=== PATIENT | female | born 1990 | race Caucasian/White ===

== ENCOUNTER 2018-07-23 14:25 | Observation (INO) ==
[2018-07-23] MEDS ORDERED: *HR* FentaNYL (PF) 100 MCG/2 ML VIAL IVP ONE (15:56)
[2018-07-23] MEDS ORDERED: Ondansetron 4 MG/2 ML VIAL IVP ONE ×2 (15:56→19:16)
[2018-07-23] MEDS ORDERED: 0.9 % Sodium Chloride 1,000 ML IVC ONE (16:01)
--- NOTE | 2018-07-23 16:04 | Emergency Department Note ---
Disposition Clinical Impression: Headache Qualifiers: Headache type: unspecified Headache chronicity pattern: acute headache Intractability: not intractable Qualified Code(s): R51 - Headache Fever Qualifiers: Fever type: unspecified Qualified Code(s): R50.9 - Fever, unspecified UTI (urinary tract infection) Qualifiers: Urinary tract infection type: site unspecified Hematuria presence: with hematuria Qualified Code(s): N39.0 - Urinary tract infection, site not specified Sepsis Qualifiers: Sepsis type: sepsis due to unspecified organism Qualified Code(s): A41.9 - Sepsis, unspecified organism Disposition: Still a Patient Condition: Fair Referrals: Ana Laura Sharp CNP [Primary Care Provider] - Forms: ED Satisfaction Letter Time of Disposition: 19:29 General Adult HPI - General Chief complaint: ED Headache Stated complaint: OBERGON x2days,Unable to void Time Seen by Provider: 07/23/18 15:22 Source: patient Mode of arrival: ambulatory Limitations: no limitations Nursing Notes Reviewed: Yes Vital Signs Reviewed: Yes - History of Present Illness HPI Narrative: Patient is a 28-year-old female that presents the emergency department with reports of burning with urination, headache, neck pain, back pain, fever and chills. Patient also reports that she has generalized abdominal pain. Patient states that the urinary symptoms of been intermittent for the past couple of mo nths. Patient states that she has had a headache and fever for the past few days. Patient states that she has pain in her thighs and feels like there is some numbness associated with it. Patient states that she is having sensitivity to light and sound. Patient denies any previous headaches or previous diagnosis of migraines. Pain Scale: 10 - Related Data Home Medications Medication Instructions Recorded Confirmed Dextroamphetamine/Amphetamine 10 mg PO 05/27/18 [Adderall 10 mg Tablet] Previous Rx's Medication Instructions Recorded Ondansetron ODT [Zofran ODT] 4 mg SL Q6HR #12 tab.rapdis 05/27/18 Allergies Allergy/AdvReac Type Severity Reaction Status Date / Time No Known Allergies Allergy Verified 06/15/18 09:03 All systems ED: reviewed and negative except as stated. Constitutional: Reports: fever Cardiovascular: Denies: chest pain Respiratory: Denies: dyspnea Gastrointestinal: Reports: abdominal pain, nausea Genitourinary: Reports: dysuria Musculoskeletal: Reports: back pain, neck pain Past Medical History - Past Medical History Medical history: Reports: no medical history Surgical history: Reports: other (T+A, wisdom tooth extraction) Psychiatric history: Reports: ADHD - Social History Smoking Status: Current every day smoker Smokeless Tobacco Status: No Alcohol use: Reports: recent Drug use: Reports: none Physical Exam - General Limitations: no limitations General appearance: alert, other (Patient is emotional on exam) - Head Head exam: atraumatic, normocephalic - Eye Eye exam: Present: normal appearance, EOMI - Neck Neck exam: Present: normal inspection, full ROM, trachea midline - Respiratory Respiratory exam: Present: normal lung sounds bilaterally. Absent: respiratory distress, wheezes - Cardiovascular Cardiovascular exam: Present: normal rhythm, tachycardia, normal heart sounds, +S1, +S2 - Abdominal Exam Abdominal exam: Present: soft, tenderness, normal bowel sounds. Absent: distention, guarding Abdominal tenderness: Present: diffuse - Extremities Exam Extremities exam: Present: normal inspection, full ROM. Absent: tenderness - Back Exam Back exam: Present: normal inspection, full ROM, CVA tenderness (L) - Neurological Exam Neurological exam: Present: alert, oriented X3 - Psychiatric Psychiatric exam: Present: normal affect, other (Emotional on exam) - Skin Skin exam: Present: warm, dry, intact Course Vital Signs Temperature 102.5 F H 07/23/18 14:31 Pulse Rate 128 07/23/18 14:31 Respiratory Rate 17 07/23/18 14:31 Blood Pressure 119/72 07/23/18 14:31 O2 Sat by Pulse Oximetry 100 07/23/18 14:31 Temperature 102.5 F H 07/23/18 15:14 Pulse Rate 94 07/23/18 17:00 Respiratory Rate 16 07/23/18 17:00 Blood Pressure 110/70 07/23/18 17:00 O2 Sat by Pulse Oximetry 98 07/23/18 17:00 Oxygen Delivery Oxygen Delivery Room Air Procedures - Lumbar Puncture Consent Obtained: written consent Time Out Performed: Yes Patient Position: upright Skin Prep: Povidone-Iodine 1% Local Anesthetic: lidocaine 1% Amount of anesthesia used (mL): 4 Spinal Needle Gauge: 22G Interspace Used: L3-L4 Fluid Initially Obtained: clear Complications: none Medical Decision Making - MDM Narrative Medical decision making narrative: We will obtain basic laboratory testing. The patient was unable to urinate at that time we had no other clinical source of infection so a lumbar puncture was obtained. The lumbar puncture was performed by myself with the supervision of the attending Dr. contreras. The CSF was clear and was sent for analysis. The patient was able to urinate and has evidence of urinary tract infection. Rocephin was given. The patient will require admission to the hospital for further evaluation and management however the CSF is still pending. Patient will be signed out to the night team of Dr. Sun and Dr. Woodall. Please see their documentation for final disposition. - Medical Records Medical records reviewed: Yes I reviewed the patient's medical records. - Lab Data Lab results reviewed: Yes I reviewed the patient's lab results. Result diagrams: 07/23/18 16:18 07/23/18 16:18 Lab Results 07/23/18 07/23/18 07/23/18 Range/Units 16:18 16:18 16:18 WBC 12.5 H (4.3-11.1) K/mcL RBC 4.16 (3.82-4.97) M/mcL Hgb 13.2 (11.5-15.4) g/dL Hct 37.0 (35.3-44.9) % MCV 88.9 (83.0-100.0) fL MCH 31.7 (28.0-33.3) pg MCHC 35.7 H (31.6-35.5) g/dL RDW 12.0 (11.5-14.5) % Plt Count 147 (140-400) K/mcL MPV 10.8 (9.4-12.4) fL Immature Gran % 0.3 (0-4) % Seg Neutrophils % 82.7 % Lymphocytes % 7.2 % Monocytes % 9.6 % Eosinophils % 0.0 % Basophils % 0.2 % Neutrophils # 10.4 H (1.6-8.9) K/mcL Lymphocytes # 0.9 (0.6-4.6) K/mcL Monocytes # 1.2 (0.0-1.3) K/mcL Eosinophils # 0.0 (0.0-0.6) K/mcL Basophils # 0.0 (0.0-0.2) K/mcL Sodium 133 L (136-145) mEq/L Potassium 3.6 (3.5-5.1) mEq/L Chloride 99 (98-107) mEq/L Carbon Dioxide 22 L (23-29) mEq/L BUN 7 (6-20) mg/dL Creatinine 0.75 (0.60-1.20) mg/dL Est GFR ( Amer) > 60 (> 60) Est GFR (Non-Af Amer) > 60 (> 60) BUN/Creatinine Ratio 9 (6-26) Glucose 115 H (70-105) mg/dL Calculated Osmolality 275 L (280-300) Lactic Acid 1.2 (0.5-2.2) mmol/L Calcium 9.1 (8.6-10.3) mg/dL Total Bilirubin 1.0 (0.3-1.0) mg/dL Direct Bilirubin 0.2 (0.0-0.2) mg/dL Indirect Bilirubin 0.8 (0.0-1.2) mg/dL AST 11 L (13-39) Units/L ALT 6 L (7-52) Units/L Alkaline Phosphatase 52 (34-104) Units/L Serum Total Protein 6.8 (6.4-8.9) g/dL Albumin 4.2 (3.5-5.7) g/dL Globulin 2.6 (2.4-3.5) g/dL Albumin/Globulin Ratio 1.6 (1.1-2.2) Lipase 7 L (11-82) Units/L Urine Color (Yellow) Urine Clarity (Clear) Urine pH (5.0-8.0) pH Units Ur Specific [place] (1.010-1.025) Urine Protein (Neg-Trace) mg/dL Urine Glucose (UA) (Normal) mg/dL Urine Ketones (Negative) mg/dL Urine Blood (Negative) Urine Nitrite (Negative) Urine Bilirubin (Negative) Urine Urobilinogen (Normal) mg/dL Ur Leukocyte Esterase (Negative) Urine Microscopic RBC (0-3) per hpf Urine Microscopic WBC (0-3) per hpf Ur Squamous Epith Cells (None-Few) per lpf Urine Bacteria (None-Few) per hpf Hyaline Casts (None-Few) per lpf Ur Culture Indicated? (NO) Urine Test (Negative) 07/23/18 07/23/18 Range/Units 18:18 18:18 WBC (4.3-11.1) K/mcL RBC (3.82-4.97) M/mcL Hgb (11.5-15.4) g/dL Hct (35.3-44.9) % MCV (83.0-100.0) fL MCH (28.0-33.3) pg MCHC (31.6-35.5) g/dL RDW (11.5-14.5) % Plt Count (140-400) K/mcL MPV (9.4-12.4) fL Immature Gran % (0-4) % Seg Neutrophils % % Lymphocytes % % Monocytes % % Eosinophils % % Basophils % % Neutrophils # (1.6-8.9) K/mcL Lymphocytes # (0.6-4.6) K/mcL Monocytes # (0.0-1.3) K/mcL Eosinophils # (0.0-0.6) K/mcL Basophils # (0.0-0.2) K/mcL Sodium (136-145) mEq/L Potassium (3.5-5.1) mEq/L Chloride (98-107) mEq/L Carbon Dioxide (23-29) mEq/L BUN (6-20) mg/dL Creatinine (0.60-1.20) mg/dL Est GFR ( Amer) (> 60) Est GFR (Non-Af Amer) (> 60) BUN/Creatinine Ratio (6-26) Glucose (70-105) mg/dL Calculated Osmolality (280-300) Lactic Acid (0.5-2.2) mmol/L Calcium (8.6-10.3) mg/dL Total Bilirubin (0.3-1.0) mg/dL Direct Bilirubin (0.0-0.2) mg/dL Indirect Bilirubin (0.0-1.2) mg/dL AST (13-39) Units/L ALT (7-52) Units/L Alkaline Phosphatase (34-104) Units/L Serum Total Protein (6.4-8.9) g/dL Albumin (3.5-5.7) g/dL Globulin (2.4-3.5) g/dL Albumin/Globulin Ratio (1.1-2.2) Lipase (11-82) Units/L Urine Color Yellow (Yellow) Urine Clarity Cloudy A (Clear) Urine pH 6.0 (5.0-8.0) pH Units Ur Specific [place] 1.015 (1.010-1.025) Urine Protein 100 H (Neg-Trace) mg/dL Urine Glucose (UA) Normal (Normal) mg/dL Urine Ketones >=160 H (Negative) mg/dL Urine Blood Moderate H (Negative) Urine Nitrite Positive A (Negative) Urine Bilirubin Negative (Negative) Urine Urobilinogen Normal (Normal) mg/dL Ur Leukocyte Esterase Moderate H (Negative) Urine Microscopic RBC 3-5 H (0-3) per hpf Urine Microscopic WBC 50-100 H (0-3) per hpf Ur Squamous Epith Cells Many H (None-Few) per lpf Urine Bacteria Many H (None-Few) per hpf Hyaline Casts Few (None-Few) per lpf Ur Culture Indicated? NO. A (NO) Urine Test Negative (Negative) - Radiology Data Radiology results reviewed: Yes I reviewed the patient's radiology results.
--- NOTE | 2018-07-23 16:25 | Emergency Department Note ---
Disposition Clinical Impression: Headache, Fever, UTI (urinary tract infection), Sepsis Disposition: Still a Patient Condition: Fair Referrals: Ana Laura Sharp CNP [Primary Care Provider] - Forms: ED Satisfaction Letter General Adult HPI - General Chief complaint: ED Headache Stated complaint: OBREGON x2days,Unable to void Time Seen by Provider: 07/23/18 15:22 Source: patient Mode of arrival: ambulatory Limitations: no limitations - History of Present Illness Pain Scale: 7 - Related Data Home Medications Medication Instructions Recorded Confirmed Dextroamphetamine/Amphetamine 10 mg PO 05/27/18 [Adderall 10 mg Tablet] Previous Rx's Medication Instructions Recorded Ondansetron ODT [Zofran ODT] 4 mg SL Q6HR #12 tab.rapdis 05/27/18 Allergies Allergy/AdvReac Type Severity Reaction Status Date / Time No Known Allergies Allergy Verified 06/15/18 09:03 Constitutional: Reports: fever Cardiovascular: Denies: chest pain Respiratory: Denies: dyspnea Gastrointestinal: Reports: abdominal pain, nausea Genitourinary: Reports: dysuria Musculoskeletal: Reports: back pain, neck pain Past Medical History - Past Medical History Medical history: Reports: no medical history Surgical history: Reports: other (T+A, wisdom tooth extraction) Psychiatric history: Reports: ADHD - Social History Smoking Status: Current every day smoker Smokeless Tobacco Status: No Alcohol use: Reports: recent Drug use: Reports: none Physical Exam - General Limitations: no limitations General appearance: alert, other (Patient is emotional on exam) Course Vital Signs Temperature 102.5 F H 07/23/18 14:31 Pulse Rate 128 07/23/18 14:31 Respiratory Rate 17 07/23/18 14:31 Blood Pressure 119/72 07/23/18 14:31 O2 Sat by Pulse Oximetry 100 07/23/18 14:31 Temperature 102.5 F H 07/23/18 15:14 Pulse Rate 94 07/23/18 17:00 Respiratory Rate 16 07/23/18 17:00 Blood Pressure 110/70 07/23/18 17:00 O2 Sat by Pulse Oximetry 98 07/23/18 17:00 Oxygen Delivery Oxygen Delivery Room Air Medical Decision Making - Lab Data Result diagrams: 07/23/18 16:18 07/23/18 16:18 Lab Results 07/23/18 07/23/18 07/23/18 Range/Units 16:18 16:18 16:18 WBC 12.5 H (4.3-11.1) K/mcL RBC 4.16 (3.82-4.97) M/mcL Hgb 13.2 (11.5-15.4) g/dL Hct 37.0 (35.3-44.9) % MCV 88.9 (83.0-100.0) fL MCH 31.7 (28.0-33.3) pg MCHC 35.7 H (31.6-35.5) g/dL RDW 12.0 (11.5-14.5) % Plt Count 147 (140-400) K/mcL MPV 10.8 (9.4-12.4) fL Immature Gran % 0.3 (0-4) % Seg Neutrophils % 82.7 % Lymphocytes % 7.2 % Monocytes % 9.6 % Eosinophils % 0.0 % Basophils % 0.2 % Neutrophils # 10.4 H (1.6-8.9) K/mcL Lymphocytes # 0.9 (0.6-4.6) K/mcL Monocytes # 1.2 (0.0-1.3) K/mcL Eosinophils # 0.0 (0.0-0.6) K/mcL Basophils # 0.0 (0.0-0.2) K/mcL Sodium 133 L (136-145) mEq/L Potassium 3.6 (3.5-5.1) mEq/L Chloride 99 (98-107) mEq/L Carbon Dioxide 22 L (23-29) mEq/L BUN 7 (6-20) mg/dL Creatinine 0.75 (0.60-1.20) mg/dL Est GFR ( Amer) > 60 (> 60) Est GFR (Non-Af Amer) > 60 (> 60) BUN/Creatinine Ratio 9 (6-26) Glucose 115 H (70-105) mg/dL Calculated Osmolality 275 L (280-300) Lactic Acid 1.2 (0.5-2.2) mmol/L Calcium 9.1 (8.6-10.3) mg/dL Total Bilirubin 1.0 (0.3-1.0) mg/dL Direct Bilirubin 0.2 (0.0-0.2) mg/dL Indirect Bilirubin 0.8 (0.0-1.2) mg/dL AST 11 L (13-39) Units/L ALT 6 L (7-52) Units/L Alkaline Phosphatase 52 (34-104) Units/L Serum Total Protein 6.8 (6.4-8.9) g/dL Albumin 4.2 (3.5-5.7) g/dL Globulin 2.6 (2.4-3.5) g/dL Albumin/Globulin Ratio 1.6 (1.1-2.2) Lipase 7 L (11-82) Units/L Urine Color (Yellow) Urine Clarity (Clear) Urine pH (5.0-8.0) pH Units Ur Specific [place] (1.010-1.025) Urine Protein (Neg-Trace) mg/dL Urine Glucose (UA) (Normal) mg/dL Urine Ketones (Negative) mg/dL Urine Blood (Negative) Urine Nitrite (Negative) Urine Bilirubin (Negative) Urine Urobilinogen (Normal) mg/dL Ur Leukocyte Esterase (Negative) Urine Microscopic RBC (0-3) per hpf Urine Microscopic WBC (0-3) per hpf Ur Squamous Epith Cells (None-Few) per lpf Urine Bacteria (None-Few) per hpf Hyaline Casts (None-Few) per lpf Ur Culture Indicated? (NO) Urine Test (Negative) 07/23/18 07/23/18 Range/Units 18:18 18:18 WBC (4.3-11.1) K/mcL RBC (3.82-4.97) M/mcL Hgb (11.5-15.4) g/dL Hct (35.3-44.9) % MCV (83.0-100.0) fL MCH (28.0-33.3) pg MCHC (31.6-35.5) g/dL RDW (11.5-14.5) % Plt Count (140-400) K/mcL MPV (9.4-12.4) fL Immature Gran % (0-4) % Seg Neutrophils % % Lymphocytes % % Monocytes % % Eosinophils % % Basophils % % Neutrophils # (1.6-8.9) K/mcL Lymphocytes # (0.6-4.6) K/mcL Monocytes # (0.0-1.3) K/mcL Eosinophils # (0.0-0.6) K/mcL Basophils # (0.0-0.2) K/mcL Sodium (136-145) mEq/L Potassium (3.5-5.1) mEq/L Chloride (98-107) mEq/L Carbon Dioxide (23-29) mEq/L BUN (6-20) mg/dL Creatinine (0.60-1.20) mg/dL Est GFR ( Amer) (> 60) Est GFR (Non-Af Amer) (> 60) BUN/Creatinine Ratio (6-26) Glucose (70-105) mg/dL Calculated Osmolality (280-300) Lactic Acid (0.5-2.2) mmol/L Calcium (8.6-10.3) mg/dL Total Bilirubin (0.3-1.0) mg/dL Direct Bilirubin (0.0-0.2) mg/dL Indirect Bilirubin (0.0-1.2) mg/dL AST (13-39) Units/L ALT (7-52) Units/L Alkaline Phosphatase (34-104) Units/L Serum Total Protein (6.4-8.9) g/dL Albumin (3.5-5.7) g/dL Globulin (2.4-3.5) g/dL Albumin/Globulin Ratio (1.1-2.2) Lipase (11-82) Units/L Urine Color Yellow (Yellow) Urine Clarity Cloudy A (Clear) Urine pH 6.0 (5.0-8.0) pH Units Ur Specific [place] 1.015 (1.010-1.025) Urine Protein 100 H (Neg-Trace) mg/dL Urine Glucose (UA) Normal (Normal) mg/dL Urine Ketones >=160 H (Negative) mg/dL Urine Blood Moderate H (Negative) Urine Nitrite Positive A (Negative) Urine Bilirubin Negative (Negative) Urine Urobilinogen Normal (Normal) mg/dL Ur Leukocyte Esterase Moderate H (Negative) Urine Microscopic RBC 3-5 H (0-3) per hpf Urine Microscopic WBC 50-100 H (0-3) per hpf Ur Squamous Epith Cells Many H (None-Few) per lpf Urine Bacteria Many H (None-Few) per hpf Hyaline Casts Few (None-Few) per lpf Ur Culture Indicated? NO. A (NO) Urine Test Negative (Negative) Attestation Statement - Attestation Attestation: I examined this patient and my medical decision-making was reviewed with the Resident Physician. I agree with the documented findings, disposition and treatment plan as described except to the extent set forth below. Patient presents to the ED with a chief complaint of fever and back pain and headache. Onset 2 days ago. Urinary frequency and burning. States has been going on over a month. Patient complaining and neck pain as well. On examination she is laying on her side crying. Neck tenderness but no meningismus. Lungs clear. Abdomen soft lower tenderness. Plan. Septic workup. UA. Hydration and pain meds and reevaluate. Patient was supple. Headache and neck pain and fever after medications. We did perform a lumbar puncture. I was present for the entire procedure. CSF pending. Patient does have a UTI we will be admitted. Rocephin ordered. Signed out to night filler pending CSF results and admission.
[2018-07-23] MEDS ORDERED: Ketorolac 15 MG/ML VIAL IVP ONE (16:26)
[2018-07-23 16:33] LABS: Basophils % 0.2 %; Hemoglobin 13.2 g/dL (11.5-15.4); Immature Granulocytes % 0.3 % (0-4); Lymphocytes # 0.9 K/mcL (0.6-4.6); Lymphocytes % 7.2 %; Mean Corpuscular HGB Conc 35.7 g/dL (31.6-35.5); Mean Corpuscular Hemoglobin 31.7 pg (28.0-33.3); Mean Corpuscular Volume 88.9 fL (83.0-100.0); Mean Platelet Volume 10.8 fL (9.4-12.4); Monocytes # 1.2 K/mcL (0.0-1.3); Monocytes % 9.6 %; Neutrophils # 10.4 K/mcL (1.6-8.9); Platelet Count 147 K/mcL (140-400); Red Blood Count 4.16 M/mcL (3.82-4.97); Segmented Neutrophils % 82.7 %
[2018-07-23 16:53] LABS: Alanine Aminotransferase 6 Units/L (7-52); Albumin 4.2 g/dL (3.5-5.7); Albumin/Globulin Ratio 1.6 (1.1-2.2); Alkaline Phosphatase 52 Units/L (34-104); Aspartate Amino Transferase 11 Units/L (13-39); BUN/Creatinine Ratio 9 (6-26); Bilirubin,Direct 0.2 mg/dL (0.0-0.2); Bilirubin,Indirect 0.8 mg/dL (0.0-1.2); Blood Urea Nitrogen 7 mg/dL (6-20); Calcium 9.1 mg/dL (8.6-10.3); Carbon Dioxide 22 mEq/L (23-29); Chloride 99 mEq/L (98-107); Globulin 2.6 g/dL (2.4-3.5); Glucose 115 mg/dL (70-105); Lipase 7 Units/L (11-82); Osmolality,Calculated 275 (280-300); Potassium 3.6 mEq/L (3.5-5.1); Sodium 133 mEq/L (136-145); Total Protein 6.8 g/dL (6.4-8.9); eGFR For Non-African Americans > 60 (> 60)
[2018-07-23 18:29] LABS: Bilirubin,Urine Negative (Negative); Blood,Urine Moderate (Negative); Clarity,Urine Cloudy (Clear); Color,Urine Yellow (Yellow); Glucose,Urine (UA) Normal (Normal); Ketones,Urine >=160 mg/dL (Negative); Leukocyte Esterase,Urine Moderate (Negative); Nitrite,Urine Positive (Negative); Protein,Urine 100 mg/dL (Neg-Trace); Specific Gravity,Urine 1.015 (1.010-1.025); Urobilinogen,Urine Normal (Normal)
[2018-07-23 18:31] LABS: Bacteria,Urine Many per hpf (None-Few); Hyaline Casts,Urine Few per lpf (None-Few); Squamous Epithelial Cell,Urine Many per lpf (None-Few); WBC,Urine 50-100 per hpf (0-3)
[2018-07-23] MEDS ORDERED: Ondansetron 4 MG/2 ML VIAL ONE (18:47)
[2018-07-23] MEDS ORDERED: cefTRIAXone 1,000 MG in Water for inj. (sterile) 20 ML 10 ML IVP ONE ×2 (19:15→22:21)
[2018-07-23 21:19] LABS: Red Blood Cell,CSF < 0.002 M/mcL
[2018-07-23 21:24] LABS: Appearance,CSF Clear (Clear)
--- NOTE | 2018-07-23 22:42 | Emergency Department Note ---
Disposition Clinical Impression: Headache, Fever, UTI (urinary tract infection), Sepsis Disposition: Admitted As Inpatient Condition: Fair Time of Disposition: 22:44 General Adult HPI - General Chief complaint: ED Headache Stated complaint: OBREGON x2days,Unable to void Time Seen by Provider: 07/23/18 15:22 Source: patient Mode of arrival: ambulatory Limitations: no limitations Nursing Notes Reviewed: Yes Vital Signs Reviewed: Yes - History of Present Illness HPI Narrative: Patient signed out to me by daytime physicians Dr. Brewer and Dr. Garcia pending CSF results. Please see their note for further details. Pain Scale: 10 - Related Data Home Medications Medication Instructions Recorded Confirmed Dextroamphetamine/Amphetamine 10 mg PO 05/27/18 [Adderall 10 mg Tablet] Previous Rx's Medication Instructions Recorded Ondansetron ODT [Zofran ODT] 4 mg SL Q6HR #12 tab.rapdis 05/27/18 Allergies Allergy/AdvReac Type Severity Reaction Status Date / Time No Known Allergies Allergy Verified 06/15/18 09:03 All systems ED: reviewed and negative except as stated. Constitutional: Reports: fever Cardiovascular: Denies: chest pain Respiratory: Denies: dyspnea Gastrointestinal: Reports: abdominal pain, nausea Genitourinary: Reports: dysuria Musculoskeletal: Reports: back pain, neck pain Past Medical History - Past Medical History Medical history: Reports: no medical history Surgical history: Reports: other (T+A, wisdom tooth extraction) Psychiatric history: Reports: ADHD - Social History Smoking Status: Current every day smoker Smokeless Tobacco Status: No Alcohol use: Reports: recent Drug use: Reports: none Physical Exam - General Limitations: no limitations General appearance: alert, other (Patient is emotional on exam) Course Course Narrative: Patient signed out to me by daytime physicians Dr. Brewer and Dr. Garcia pending CSF results. Please see their note for further details. Juany is a 28-year-old female presenting with difficulty in voiding intermittently for several months as well as associated headache neck pain and fever. Patient was febrile and tachycardic here. She was unable to avoid. Lumbar puncture was performed in afterwords patient was able to give a urine sample which appeared consistent with infection. Suspect likely pyelonephritis. Patient was initially treated with ceftriaxone. Patient will be admitted for suspected pyelonephritis. CSF pending. - Consultations Consultation #1: Spoke with on-call hospitalist grazyna Harrington to admit for pyelonephritis and headache with fever. CSF was clear but will be admitted for further monitoring and culture. She will be treated empirically for meningitis with vancomycin and ceftriaxone. Time: 22:42 Vital Signs Temperature 102.5 F H 07/23/18 14:31 Pulse Rate 128 07/23/18 14:31 Respiratory Rate 17 07/23/18 14:31 Blood Pressure 119/72 07/23/18 14:31 O2 Sat by Pulse Oximetry 100 07/23/18 14:31 Temperature 102.5 F H 07/23/18 15:14 Pulse Rate 101 07/23/18 21:25 Respiratory Rate 18 07/23/18 21:25 Blood Pressure 105/63 07/23/18 21:25 O2 Sat by Pulse Oximetry 97 07/23/18 21:25 Oxygen Delivery Oxygen Delivery Room Air Medical Decision Making - MDM Narrative Medical decision making narrative: Patient was discussed with my attending physician who agrees with ED management and final disposition. They independently evaluated the patient. Please refer to their attestation to this encounter for additional information. This note was generated by [employer] voice recognition software and as a result grammatical or spelling errors may occur using this program. - Medical Records Medical records reviewed: Yes I reviewed the patient's medical records. - Lab Data Lab results reviewed: Yes I reviewed the patient's lab results. Result diagrams: 07/23/18 16:18 07/23/18 16:18 Lab Results 07/23/18 07/23/18 07/23/18 Range/Units 16:18 16:18 16:18 WBC 12.5 H (4.3-11.1) K/mcL RBC 4.16 (3.82-4.97) M/mcL Hgb 13.2 (11.5-15.4) g/dL Hct 37.0 (35.3-44.9) % MCV 88.9 (83.0-100.0) fL MCH 31.7 (28.0-33.3) pg MCHC 35.7 H (31.6-35.5) g/dL RDW 12.0 (11.5-14.5) % Plt Count 147 (140-400) K/mcL MPV 10.8 (9.4-12.4) fL Immature Gran % 0.3 (0-4) % Seg Neutrophils % 82.7 % Lymphocytes % 7.2 % Monocytes % 9.6 % Eosinophils % 0.0 % Basophils % 0.2 % Neutrophils # 10.4 H (1.6-8.9) K/mcL Lymphocytes # 0.9 (0.6-4.6) K/mcL Monocytes # 1.2 (0.0-1.3) K/mcL Eosinophils # 0.0 (0.0-0.6) K/mcL Basophils # 0.0 (0.0-0.2) K/mcL Sodium 133 L (136-145) mEq/L Potassium 3.6 (3.5-5.1) mEq/L Chloride 99 (98-107) mEq/L Carbon Dioxide 22 L (23-29) mEq/L BUN 7 (6-20) mg/dL Creatinine 0.75 (0.60-1.20) mg/dL Est GFR ( Amer) > 60 (> 60) Est GFR (Non-Af Amer) > 60 (> 60) BUN/Creatinine Ratio 9 (6-26) Glucose 115 H (70-105) mg/dL Calculated Osmolality 275 L (280-300) Lactic Acid 1.2 (0.5-2.2) mmol/L Calcium 9.1 (8.6-10.3) mg/dL Total Bilirubin 1.0 (0.3-1.0) mg/dL Direct Bilirubin 0.2 (0.0-0.2) mg/dL Indirect Bilirubin 0.8 (0.0-1.2) mg/dL AST 11 L (13-39) Units/L ALT 6 L (7-52) Units/L Alkaline Phosphatase 52 (34-104) Units/L Serum Total Protein 6.8 (6.4-8.9) g/dL Albumin 4.2 (3.5-5.7) g/dL Globulin 2.6 (2.4-3.5) g/dL Albumin/Globulin Ratio 1.6 (1.1-2.2) Lipase 7 L (11-82) Units/L Urine Color (Yellow) Urine Clarity (Clear) Urine pH (5.0-8.0) pH Units Ur Specific [place] (1.010-1.025) Urine Protein (Neg-Trace) mg/dL Urine Glucose (UA) (Normal) mg/dL Urine Ketones (Negative) mg/dL Urine Blood (Negative) Urine Nitrite (Negative) Urine Bilirubin (Negative) Urine Urobilinogen (Normal) mg/dL Ur Leukocyte Esterase (Negative) Urine Microscopic RBC (0-3) per hpf Urine Microscopic WBC (0-3) per hpf Ur Squamous Epith Cells (None-Few) per lpf Urine Bacteria (None-Few) per hpf Hyaline Casts (None-Few) per lpf Ur Culture Indicated? (NO) Urine Test (Negative) CSF Volume mL CSF Appearance (Clear) CSF Color (Colorless) CSF RBC (0.000 - 0.002) M/mcL CSF Tot Nucleated Cells (0-5) TNC/mcL CSF Seg Neutrophils CSF Band Neutrophils % CSF Lymphocytes % CSF Monocytes % CSF Eosinophils % CSF Basophils % CSF Other Cells % CSF Xanth Comm (Not Observe) 07/23/18 07/23/18 07/23/18 Range/Units 18:18 18:18 18:51 WBC (4.3-11.1) K/mcL RBC (3.82-4.97) M/mcL Hgb (11.5-15.4) g/dL Hct (35.3-44.9) % MCV (83.0-100.0) fL MCH (28.0-33.3) pg MCHC (31.6-35.5) g/dL RDW (11.5-14.5) % Plt Count (140-400) K/mcL MPV (9.4-12.4) fL Immature Gran % (0-4) % Seg Neutrophils % % Lymphocytes % % Monocytes % % Eosinophils % % Basophils % % Neutrophils # (1.6-8.9) K/mcL Lymphocytes # (0.6-4.6) K/mcL Monocytes # (0.0-1.3) K/mcL Eosinophils # (0.0-0.6) K/mcL Basophils # (0.0-0.2) K/mcL Sodium (136-145) mEq/L Potassium (3.5-5.1) mEq/L Chloride (98-107) mEq/L Carbon Dioxide (23-29) mEq/L BUN (6-20) mg/dL Creatinine (0.60-1.20) mg/dL Est GFR ( Amer) (> 60) Est GFR (Non-Af Amer) (> 60) BUN/Creatinine Ratio (6-26) Glucose (70-105) mg/dL Calculated Osmolality (280-300) Lactic Acid (0.5-2.2) mmol/L Calcium (8.6-10.3) mg/dL Total Bilirubin (0.3-1.0) mg/dL Direct Bilirubin (0.0-0.2) mg/dL Indirect Bilirubin (0.0-1.2) mg/dL AST (13-39) Units/L ALT (7-52) Units/L Alkaline Phosphatase (34-104) Units/L Serum Total Protein (6.4-8.9) g/dL Albumin (3.5-5.7) g/dL Globulin (2.4-3.5) g/dL Albumin/Globulin Ratio (1.1-2.2) Lipase (11-82) Units/L Urine Color Yellow (Yellow) Urine Clarity Cloudy A (Clear) Urine pH 6.0 (5.0-8.0) pH Units Ur Specific [place] 1.015 (1.010-1.025) Urine Protein 100 H (Neg-Trace) mg/dL Urine Glucose (UA) Normal (Normal) mg/dL Urine Ketones >=160 H (Negative) mg/dL Urine Blood Moderate H (Negative) Urine Nitrite Positive A (Negative) Urine Bilirubin Negative (Negative) Urine Urobilinogen Normal (Normal) mg/dL Ur Leukocyte Esterase Moderate H (Negative) Urine Microscopic RBC 3-5 H (0-3) per hpf Urine Microscopic WBC 50-100 H (0-3) per hpf Ur Squamous Epith Cells Many H (None-Few) per lpf Urine Bacteria Many H (None-Few) per hpf Hyaline Casts Few (None-Few) per lpf Ur Culture Indicated? NO. A (NO) Urine Test Negative (Negative) CSF Volume 5.5 mL CSF Appearance Clear (Clear) CSF Color Colorless (Colorless) CSF RBC < 0.002 (0.000 - 0.002) M/mcL CSF Tot Nucleated Cells < 3 (0-5) TNC/mcL CSF Seg Neutrophils TNP CSF Band Neutrophils % TNP CSF Lymphocytes % TNP CSF Monocytes % TNP CSF Eosinophils % TNP CSF Basophils % TNP CSF Other Cells % TNP CSF Xanth Comm Not Observed (Not Observe) Attestation Statement - Attestation Attestation: I agree with the documented findings, disposition and treatment plan as described except to the extent set forth below. I did not have [id number] time with this patient. I did not actively participate in the care of this patient. The resident physician Dr. Woodall did discuss a summary of the patient's presentation, treatment, and ongoing plan of care with me after the primary treating attending physician completed their shift
[2018-07-23 23:16] LABS: Glucose,CSF 70 mg/dL (40-70); Total Protein,CSF 28 mg/dL (15-45)
[2018-07-24] MEDS ORDERED: Ondansetron 4 MG/2 ML VIAL IVP PRN (00:38)
[2018-07-24] MEDS ORDERED: Naloxone 0.4 MG/ML INJ IVP PRN (00:56)
[2018-07-24] MEDS ORDERED: Ketorolac 30 MG/ML VIAL IVP ONE (00:56)
[2018-07-24] MEDS ORDERED: Isovue-370 500 ML INFUS..BTL IV ONE (00:57)
--- NOTE | 2018-07-24 01:09 | Internal Med History&Physical ---
Date of Encounter: 07/24/18 Time of Encounter: 01:07 Internal Medicine - H&P: HPI Chief complaint: bodyaches Admitted From: Home Plans for Post Hospital Care: Home History of present illness: Marcela Varghese is a 28-year-old woman who presented to the emergency room complaining of a number of days of fever, headache, abdominal and lower back pain. She also reports having difficulty with voiding that has been going on for months and being evaluated as an outpatient but of recent has had some dysuria. In the ER due to the headache and fever a lumbar puncture was done to rule out meningitis and CSF studies being unremarkable. Urinalysis was done and found to be remarkable and was started on treatment for possible UTI. She is now admitted for further care. On my assessment she is lying uncomfortably in bed in notable discomfort. She complains of pain in her abdomen and her lower back as well as having headaches. She does report having a UTI in the past. Past Med Surg Social Fam HX - Past Medical History Medical history: no medical history Additional medical history: vaginal delivery 2012 Psychiatric history: ADHD - Past Surgical History Surgical History: other (T+A, wisdom tooth extraction) Additional surgical history: tonsils and wisdom teeth - Social History Smoking Status: Current every day smoker Smokeless Tobacco Status: No Alcohol use: recent Drug use: none - Family History Mother Family Member Ethnicity: Non- Living Status: Still Living Hx Family Cardiac Disorders: No Hx Family Respiratory Disorders: No Hx Family Cancer: No Hx Family GI Disorders: No Hx Family Endocrine Disorder: No Hx Family Neuromuscular Disorders: No Hx Family Neurologic Disorders: No Hx Family HEENT Disorders: No Hx Family Autoimmune Disorders: No Internal Medicine - H&P: Meds Dextroamphetamine/Amphetamine [Adderall 10 mg Tablet] 10 mg PO 05/27/18 [History] Ondansetron ODT [Zofran ODT] 4 mg SL Q6HR #12 tab.rapdis 05/27/18 [Rx] Allergy/AdvReac Type Severity Reaction Status Date / Time No Known Allergies Allergy Verified 06/15/18 09:03 All Systems PM: A 10-system review of systems was performed and is negative for pertinent findings except as documented above in the HPI. - Constitutional Vitals: Temp Pulse Resp BP Pulse Ox 102.5 F H 110 15 104/70 95 07/23/18 15:14 07/23/18 23:20 07/23/18 23:20 07/23/18 23:20 07/23/18 23:20 Exam: Vitals: Reviewed General: Well-developed female lying comfortably in bed in notable discomfort. Skin: Flushed, warm and dry. HEENT: Dry mucous membranes. No conjunctivae pallor. Neck: No lymphadenopathy. No JVD. No carotid bruits. No palpable thyroid. No meningismus. Chest: Normal thoracic expansion. Normal breath sounds. Clear to auscultation. Heart: Normal S1 & S2; rhythmic. No rubs or murmurs. Abdomen: Non-distended, soft and mildly tender to palpation in the flanks. Extremities: No clubbing, cyanosis or edema. No calf tenderness. Normal distal pulses. Neurological: Awake, alert and oriented to person, place and time. No focal deficits. Psych: Affect appropriate. Internal Med - H&P Results - Labs CBC & Chem 7: 07/23/18 16:18 07/23/18 16:18 Labs: Short CBC 07/23/18 Range/Units 16:18 WBC 12.5 H (4.3-11.1) K/mcL Hgb 13.2 (11.5-15.4) g/dL Hct 37.0 (35.3-44.9) % Plt Count 147 (140-400) K/mcL Neutrophils # 10.4 H (1.6-8.9) K/mcL BMP 07/23/18 16:18 Sodium 133 L Potassium 3.6 Chloride 99 Carbon Dioxide 22 L BUN 7 Creatinine 0.75 Glucose 115 H Calcium 9.1 Liver Function 07/23/18 Range/Units 16:18 Total Bilirubin 1.0 (0.3-1.0) mg/dL Direct Bilirubin 0.2 (0.0-0.2) mg/dL AST 11 L (13-39) Units/L ALT 6 L (7-52) Units/L Alkaline Phosphatase 52 (34-104) Units/L Albumin 4.2 (3.5-5.7) g/dL Urine 07/23/18 Range/Units 18:18 Urine Color Yellow (Yellow) Urine Clarity Cloudy A (Clear) Urine pH 6.0 (5.0-8.0) pH Units Ur Specific [place] 1.015 (1.010-1.025) Urine Protein 100 H (Neg-Trace) mg/dL Urine Glucose (UA) Normal (Normal) mg/dL - Assessment and plan (1) Sepsis due to urinary tract infection Current Visit: Yes Status: Acute Assessment and plan: As evidenced by fever, tachycardia and leukocytosis. UA is positive and has dysuric symptoms. Now has systemic symptoms that are concerning. Will get blood cultures as well as urine and perform a CT scan of her abdomen/pelvis given the severity of her symptoms. Continue ceftriaxone 1gr daily empirically. (2) ADHD Current Visit: Yes Status: Acute Assessment and plan: On Adderall. Qualifiers: Attention deficit-hyperactivity disorder type: unspecified Qualified Code(s): F90.9 - Attention-deficit hyperactivity disorder, unspecified type (3) DVT prophylaxis Current Visit: Yes Status: Acute Assessment and plan: SubQ heparin - Time Spent With Patient Total time spent is greater than 50% in coordination of care (as documented) at patient's floor/unit and/or counseling patient: Greater than 35 minutes
[2018-07-24] MEDS: 0.9 % Sodium Chloride 1,000 ML IVC SCH ×2 (02:27→11:17)
[2018-07-24] MEDS: Acetaminophen 325 MG TABLET PO PRN ×2 (02:50→16:53)
[2018-07-24 04:43] LABS: Basophils % 0.4 %; Hematocrit 35.1 % (35.3-44.9); Hemoglobin 12.1 g/dL (11.5-15.4); Immature Granulocytes % 0.5 % (0-4); Lymphocytes # 1.4 K/mcL (0.6-4.6); Lymphocytes % 12.2 %; Mean Corpuscular HGB Conc 34.5 g/dL (31.6-35.5); Mean Corpuscular Hemoglobin 31.3 pg (28.0-33.3); Mean Corpuscular Volume 90.9 fL (83.0-100.0); Mean Platelet Volume 11.2 fL (9.4-12.4); Monocytes # 1.1 K/mcL (0.0-1.3); Neutrophils # 8.5 K/mcL (1.6-8.9); Platelet Count 132 K/mcL (140-400); Red Blood Count 3.86 M/mcL (3.82-4.97); Red Cell Distribution Width 11.9 % (11.5-14.5); Segmented Neutrophils % 76.9 %
[2018-07-24 05:03] LABS: BUN/Creatinine Ratio 12 (6-26); Blood Urea Nitrogen 9 mg/dL (6-20); Calcium 8.5 mg/dL (8.6-10.3); Carbon Dioxide 19 mEq/L (23-29); Chloride 103 mEq/L (98-107); Glucose 103 mg/dL (70-105); Osmolality,Calculated 279 (280-300); Potassium 2.9 mEq/L (3.5-5.1); Sodium 135 mEq/L (136-145); eGFR For Non-African Americans > 60 (> 60)
[2018-07-24] MEDS ORDERED: Potassium Chloride Elixir 20 MEQ/15 ML UDC PO ONE ×2 (05:31→12:00)
[2018-07-24] MEDS ORDERED: CEFTRIAXONE IVPB SCH (09:00)
[2018-07-24] MEDS ORDERED: cefTRIAXone 1,000 MG in Water for inj. (sterile) 20 ML 10 ML IVP SCH (09:00)
[2018-07-24] MEDS ORDERED: WATER FOR INJ IVPB SCH (09:00)
[2018-07-24] MEDS: *HR* OxyCODONE Immed Rel 5 MG TABLET PO PRN ×2 (12:08→17:29)
--- NOTE | 2018-07-24 14:14 | Event Note ---
Date of Encounter: 07/24/18 Time of Encounter: 11:30 Patient seen and examined at the bedside. Agree with the assessment and plan as laid out by the admitting hospitalist. This is a 28-year-old female with past medical history of difficulty in passing urine chronically. She presented with urinary tract infection and sepsis related to urinary tract infection. She has found to have pyelonephritis of the left upper lobe of the kidney on the CAT scan. She is to continue on Rocephin urine culture is pending. She will benefit from at least 10 total days of antibiotics based on culture sensitivities. Blood cultures are also pending as of now. Given the fact that she is multi parous and has had this urinary retention history and now a pyelonephritis, she may benefit from a urology consultation inpatient versus outpatient at the time of discharge.
[2018-07-25] MEDS: Acetaminophen 325 MG TABLET PO PRN ×2 (00:10→15:59)
[2018-07-25] MEDS: *HR* Heparin 5,000 UNIT/ML VIAL SQ SCH ×3 (00:11→19:05)
[2018-07-25] MEDS: *HR* HYDROcodone/Acet 5/325 mg TABLET PO PRN (01:14)
[2018-07-25] MEDS: cefTRIAXone 2,000 MG in Water for inj. (sterile) 20 ML 20 ML IVP SCH (05:24)
--- NOTE | 2018-07-25 08:32 | Internal Med Progress Note ---
Hospitalist Progress Note - Encounter Date of Encounter: 07/25/18 Time of Encounter: 08:00 - Subjective Interval History: 28-year-old woman who presented to the emergency room complaining of a number of days of fever, headache, abdominal and lower back pain. She also reports having difficulty with voiding that has been going on for months and being evaluated as an outpatient but of recent has had some dysuria. In the ER due to the headache and fever a lumbar puncture was done to rule out meningitis and CSF studies being unremarkable. Urinalysis was done and found to be remarkable and was started on treatment for possible UTI. - Exam Vitals: Temp Pulse Resp BP Pulse Ox 100.3 F H 84 16 100/67 96 07/25/18 06:57 07/25/18 06:57 07/25/18 06:57 07/25/18 06:57 07/25/18 06:57 Exam: Vitals: Reviewed General: Well-developed female lying comfortably in bed in notable discomfort. Skin: Flushed, warm and dry. HEENT: Dry mucous membranes. No conjunctivae pallor. Neck: No lymphadenopathy. No JVD. No carotid bruits. No palpable thyroid. No meningismus. Chest: Normal thoracic expansion. Normal breath sounds. Clear to auscultation. Heart: Normal S1 & S2; rhythmic. No rubs or murmurs. Abdomen: Non-distended, soft and mildly tender to palpation in the flanks. Extremities: No clubbing, cyanosis or edema. No calf tenderness. Normal distal pulses. Neurological: Awake, alert and oriented to person, place and time. No focal deficits. Psych: Affect appropriate. - Assessment and Plan (1) Sepsis due to urinary tract infection Current Visit: Yes Status: Acute Assessment and Plan: Pt has sepsis due to acute pyelonephritis. Has leukocytosis and recurrent fever spikes Continue ceftriaxone. Follow blood cultures (2) Acute pyelonephritis Current Visit: Yes Status: Acute Assessment and Plan: See #1. CT abdomen shows evidence of pyelonephritis with no collections or abscess Continue IV fluids and antibiotics (3) ADHD Current Visit: Yes Status: Acute Assessment and Plan: On Adderall. (4) DVT prophylaxis Current Visit: Yes Status: Acute Assessment and Plan: SubQ heparin - Time Spent with Patient Total time spent is greater than 50% in coordination of care (as documented) at patient's floor/unit and/or counseling patient: Internal Medicine: Result - Labs CBC & Chem 7: 07/25/18 08:57 07/25/18 08:57 - Impressions Impressions Abdomen/Pelvis CT 07/24/18 09:40 IMPRESSION: Pyelonephritis in the upper to mid left kidney. No drainable fluid collection or abscess. CT follow-up to document resolution following antibiotic therapy is recommended. D/ / 07/24/2018 11:39:03 Ameya Barros MD / Radha Valladares Interpreting Provider: Ameya Barros MD Consult Discharge Plan - Plan Referrals: Ana Laura Sharp, EMS EDUCATOR [Primary Care Provider] - (3) ADHD Qualifiers: Attention deficit-hyperactivity disorder type: unspecified Qualified Code(s): F90.9 - Attention-deficit hyperactivity disorder, unspecified type
[2018-07-25] MEDS: *HR* OxyCODONE Immed Rel 5 MG TABLET PO PRN ×2 (09:13→15:59)
[2018-07-25 09:22] LABS: Basophils % 0.2 %; Eosinophils # 0.1 K/mcL (0.0-0.6); Eosinophils % 0.6 %; Hematocrit 30.3 % (35.3-44.9); Hemoglobin 10.6 g/dL (11.5-15.4); Immature Granulocytes % 0.2 % (0-4); Lymphocytes # 1.7 K/mcL (0.6-4.6); Lymphocytes % 17.9 %; Mean Corpuscular Volume 88.6 fL (83.0-100.0); Mean Platelet Volume 11.2 fL (9.4-12.4); Monocytes # 1.6 K/mcL (0.0-1.3); Monocytes % 17.1 %; Platelet Count 131 K/mcL (140-400); Red Blood Count 3.42 M/mcL (3.82-4.97); Red Cell Distribution Width 12.2 % (11.5-14.5)
[2018-07-25 09:41] LABS: BUN/Creatinine Ratio 10 (6-26); Blood Urea Nitrogen 6 mg/dL (6-20); Calcium 8.5 mg/dL (8.6-10.3); Carbon Dioxide 22 mEq/L (23-29); Chloride 104 mEq/L (98-107); Glucose 94 mg/dL (70-105); Osmolality,Calculated 279 (280-300); Potassium 3.4 mEq/L (3.5-5.1); Sodium 136 mEq/L (136-145); eGFR For Non-African Americans > 60 (> 60)
[2018-07-25] MEDS ORDERED: Potassium Chloride Elixir 20 MEQ/15 ML UDC PO SCH (10:45)
[2018-07-25] MEDS: 0.9 % Sodium Chloride 1,000 ML IVC SCH (11:29)
[2018-07-25] MEDS ORDERED: Ketorolac 30 MG/ML VIAL IVP PRN (16:21)
[2018-07-25] MEDS: Prochlorperazine 10 MG/2 ML VIAL IVP PRN (17:11)
[2018-07-25] MEDS ORDERED: 0.9 % Sodium Chloride 1,000 ML ONE (18:38)
[2018-07-25] MEDS ORDERED: 0.9 % Sodium Chloride 500 ML IVC ONE (23:30)
[2018-07-26] MEDS: 0.9 % Sodium Chloride 1,000 ML IVC SCH ×3 (00:34→20:37)
[2018-07-26] MEDS: *HR* Heparin 5,000 UNIT/ML VIAL SQ SCH ×2 (06:16→16:26)
[2018-07-26] MEDS: cefTRIAXone 2,000 MG in Water for inj. (sterile) 20 ML 20 ML IVP SCH (06:19)
--- NOTE | 2018-07-26 07:59 | Internal Med Progress Note ---
Hospitalist Progress Note - Encounter Date of Encounter: 07/26/18 Time of Encounter: 08:00 - Subjective Interval History: 28-year-old woman who presented to the emergency room complaining of a number of days of fever, headache, abdominal and lower back pain. She also reports having difficulty with voiding that has been going on for months and being evaluated as an outpatient but of recent has had some dysuria. In the ER due to the headache and fever a lumbar puncture was done to rule out meningitis and CSF studies being unremarkable. Urinalysis was done and found to be remarkable and was started on treatment for possible UTI. - Exam Vitals: Temp Pulse Resp BP Pulse Ox 97.8 F 68 16 102/67 98 07/26/18 07:08 07/26/18 07:08 07/26/18 07:08 07/26/18 07:08 07/26/18 07:08 Exam: Vitals: Reviewed General: Well-developed female lying comfortably in bed in notable discomfort. Skin: Flushed, warm and dry. HEENT: Dry mucous membranes. No conjunctivae pallor. Neck: No lymphadenopathy. No JVD. No carotid bruits. No palpable thyroid. No meningismus. Chest: Normal thoracic expansion. Normal breath sounds. Clear to auscultation. Heart: Normal S1 & S2; rhythmic. No rubs or murmurs. Abdomen: Non-distended, soft and mildly tender to palpation in the flanks. Extremities: No clubbing, cyanosis or edema. No calf tenderness. Normal distal pulses. Neurological: Awake, alert and oriented to person, place and time. No focal deficits. Psych: Affect appropriate. - Assessment and Plan (1) Sepsis due to urinary tract infection Current Visit: Yes Status: Acute Assessment and Plan: Pt has sepsis due to acute pyelonephritis. Has leukocytosis and recurrent fever spikes Continue ceftriaxone. Follow blood cultures (2) Acute pyelonephritis Current Visit: Yes Status: Acute Assessment and Plan: See #1. CT abdomen shows evidence of pyelonephritis with no collections or abscess Continue IV fluids and antibiotics (3) ADHD Current Visit: Yes Status: Acute Assessment and Plan: On Adderall. (4) Hypokalemia Current Visit: Yes Status: Acute Assessment and Plan: Replaced (5) DVT prophylaxis Current Visit: Yes Status: Acute Assessment and Plan: SubQ heparin - Time Spent with Patient Total time spent is greater than 50% in coordination of care (as documented) at patient's floor/unit and/or counseling patient: Internal Medicine: Result - Labs CBC & Chem 7: 07/26/18 07:59 07/26/18 07:59 Labs: Short CBC 07/25/18 Range/Units 08:57 WBC 9.4 (4.3-11.1) K/mcL Hgb 10.6 L D (11.5-15.4) g/dL Hct 30.3 L (35.3-44.9) % Plt Count 131 L (140-400) K/mcL Neutrophils # 6.0 (1.6-8.9) K/mcL BMP 07/25/18 08:57 Sodium 136 Potassium 3.4 L Chloride 104 Carbon Dioxide 22 L BUN 6 Creatinine 0.58 L Glucose 94 Calcium 8.5 L Consult Discharge Plan - Plan Referrals: Ana Laura Sharp, [employer] [Primary Care Provider] - (3) ADHD Qualifiers: Attention deficit-hyperactivity disorder type: unspecified Qualified Code(s): F90.9 - Attention-deficit hyperactivity disorder, unspecified type
[2018-07-26 08:35] LABS: Basophils % 0.4 %; Eosinophils # 0.1 K/mcL (0.0-0.6); Eosinophils % 1.2 %; Hematocrit 29.8 % (35.3-44.9); Hemoglobin 10.2 g/dL (11.5-15.4); Immature Granulocytes % 0.2 % (0-4); Lymphocytes # 1.8 K/mcL (0.6-4.6); Lymphocytes % 22.2 %; Mean Corpuscular HGB Conc 34.2 g/dL (31.6-35.5); Mean Corpuscular Hemoglobin 31.6 pg (28.0-33.3); Mean Corpuscular Volume 92.3 fL (83.0-100.0); Mean Platelet Volume 11.5 fL (9.4-12.4); Monocytes # 0.8 K/mcL (0.0-1.3); Monocytes % 9.7 %; Neutrophils # 5.4 K/mcL (1.6-8.9); Platelet Count 137 K/mcL (140-400); Red Blood Count 3.23 M/mcL (3.82-4.97); Red Cell Distribution Width 12.4 % (11.5-14.5); Segmented Neutrophils % 66.3 %
[2018-07-26 08:53] LABS: BUN/Creatinine Ratio 12 (6-26); Blood Urea Nitrogen 6 mg/dL (6-20); Calcium 8.3 mg/dL (8.6-10.3); Carbon Dioxide 24 mEq/L (23-29); Chloride 109 mEq/L (98-107); Glucose 87 mg/dL (70-105); Magnesium 1.7 mg/dL (1.6-2.6); Osmolality,Calculated 289 (280-300); Phosphorous 2.8 mg/dL (2.7-4.5); Potassium 3.6 mEq/L (3.5-5.1); Sodium 141 mEq/L (136-145); eGFR For Non-African Americans > 60 (> 60)
[2018-07-26] MEDS: *HR* OxyCODONE Immed Rel 5 MG TABLET PO PRN (09:46)
[2018-07-26] MEDS: *HR* HYDROcodone/Acet 5/325 mg TABLET PO PRN (16:30)
[2018-07-26] MEDS: Prochlorperazine 10 MG/2 ML VIAL IVP PRN (19:23)
[2018-07-27] MEDS ORDERED: 0.9 % Sodium Chloride 500 ML IVC ONE (00:24)
[2018-07-27] MEDS ORDERED: SUMAtriptan succinate 25 MG TABLET PO ONE (00:44)
[2018-07-27] MEDS: cefTRIAXone 2,000 MG in Water for inj. (sterile) 20 ML 20 ML IVP SCH (05:26)
[2018-07-27] MEDS: *HR* Heparin 5,000 UNIT/ML VIAL SQ SCH (05:27)
[2018-07-27] MEDS: 0.9 % Sodium Chloride 1,000 ML IVC SCH ×2 (05:32→07:30)
[2018-07-27 08:11] LABS: Basophils % 0.5 %; Eosinophils # 0.1 K/mcL (0.0-0.6); Eosinophils % 1.5 %; Hemoglobin 10.8 g/dL (11.5-15.4); Immature Granulocytes % 0.7 % (0-4); Lymphocytes # 1.7 K/mcL (0.6-4.6); Lymphocytes % 27.5 %; Mean Corpuscular HGB Conc 34.8 g/dL (31.6-35.5); Mean Corpuscular Hemoglobin 31.5 pg (28.0-33.3); Mean Corpuscular Volume 90.4 fL (83.0-100.0); Mean Platelet Volume 10.8 fL (9.4-12.4); Monocytes # 0.6 K/mcL (0.0-1.3); Monocytes % 9.2 %; Neutrophils # 3.6 K/mcL (1.6-8.9); Platelet Count 179 K/mcL (140-400); Red Blood Count 3.43 M/mcL (3.82-4.97); Red Cell Distribution Width 12.3 % (11.5-14.5); Segmented Neutrophils % 60.6 %
--- NOTE | 2018-07-27 10:14 | Discharge Summary ---
Orders not resulted at time of discharge: Pending orders 07/23/18 16:18 Culture,Blood [BC] Stat 07/23/18 19:02 Cell Count w Diff, CSF [BF] Stat HOLD TUBE, CSF [BF] Stat 07/27/18 08:01 Basic Metabolic Panel AM 0400 Magnesium AM 0400 Phosphorous AM 0400 07/28/18 04:00 Basic Metabolic Panel AM 0400 CBC [Complete Blood Count] [HEME] AM 0400 Magnesium AM 0400 Phosphorous AM 0400 07/29/18 04:00 Basic Metabolic Panel AM 0400 CBC [Complete Blood Count] [HEME] AM 0400 Magnesium AM 0400 Phosphorous AM 0400 07/30/18 04:00 Basic Metabolic Panel AM 0400 CBC [Complete Blood Count] [HEME] AM 0400 Magnesium AM 0400 Phosphorous AM 0400 07/31/18 04:00 Basic Metabolic Panel AM 0400 CBC [Complete Blood Count] [HEME] AM 0400 Magnesium AM 0400 Phosphorous AM 0400 Date of Encounter: 07/27/18 Time of Encounter: 10:00 - Discharge Diagnosis (1) Sepsis due to urinary tract infection Priority: Primary Status: Acute Assessment and Plan: 28-year-old woman who presented to the emergency room complaining of a number of days of fever, headache, abdominal and lower back pain. She also reports having difficulty with voiding that has been going on for months and being evaluated as an outpatient but of recent has had some dysuria. In the ER due to the headache and fever a lumbar puncture was done to rule out meningitis and CSF studies being unremarkable. Urinalysis was done and found to be remarkable and was started on treatment for possible UTI. She is now admitted for further care. She was assessed with sepsis due to acute pyelonephritis. She presented with leukocytosis and recurrent fever spikes. She had a CT done showing evidence of acute pyelonephritis. She was started on IV ceftriaxone and IV fluids and improved.Blood cultures and urine cultures came back negative. She was discharged on a 10 day coourse of cefdinir (2) Acute pyelonephritis Priority: Primary Status: Acute (3) ADHD Priority: Primary Status: Acute Qualifiers: Attention deficit-hyperactivity disorder type: unspecified Qualified Code(s): F90.9 - Attention-deficit hyperactivity disorder, unspecified type (4) Hypokalemia Priority: Primary Status: Acute (5) DVT prophylaxis Priority: Primary Status: Acute Hospital course: Ms. Varghese is a 28 year old female - Time Spent with Patient Total time spent providing and/or coordinating discharge services: - Discharge Medications Prescriptions: HYDROcodone/Acet 5/325 mg [[place] 5-325 mg] 1 tab PO Q6HR PRN 3 Days #12 tablet PRN Reason: Moderate Pain Ibuprofen [Motrin] 600 mg PO Q8HR PRN 5 Days #20 tab PRN Reason: Headache Cefdinir [Omnicef] 300 mg PO BID 10 Days #20 capsule Home Medications: Dextroamphetamine/Amphetamine [Adderall 10 mg Tablet] 10 mg PO BID 05/27/18 [History] Cefdinir [Omnicef] 300 mg PO BID 10 Days #20 capsule 07/27/18 [Rx] HYDROcodone/Acet 5/325 mg [[place] 5-325 mg] 1 tab PO Q6HR PRN 3 Days #12 tablet 07/27/18 [Rx] Ibuprofen [Motrin] 600 mg PO Q8HR PRN 5 Days #20 tab 07/27/18 [Rx] Allergies/Adverse Reactions: Allergy/AdvReac Type Severity Reaction Status Date / Time No Known Allergies Allergy Verified 06/15/18 09:03 Date of admission: 07/23/18 23:50 Primary care physician: Ana Laura Sharp CNP - Constitutional Vitals: Temp Pulse Resp BP Pulse Ox 97.7 F 71 16 99/61 97 07/27/18 07:38 07/27/18 07:38 07/27/18 07:38 07/27/18 07:38 07/27/18 07:38 Exam: Vitals: Reviewed General: Well-developed female lying comfortably in bed in notable discomfort. Skin: Flushed, warm and dry. HEENT: Dry mucous membranes. No conjunctivae pallor. Neck: No lymphadenopathy. No JVD. No carotid bruits. No palpable thyroid. No meningismus. Chest: Normal thoracic expansion. Normal breath sounds. Clear to auscultation. Heart: Normal S1 & S2; rhythmic. No rubs or murmurs. Abdomen: Non-distended, soft and mildly tender to palpation in the flanks. Extremities: No clubbing, cyanosis or edema. No calf tenderness. Normal distal pulses. Neurological: Awake, alert and oriented to person, place and time. No focal deficits. Psych: Affect appropriate. - Patient Status Disposition: Home, Self-Care Condition: Good - Discharge Instructions Instructions: Hydrocodone/Acetaminophen (By mouth), Ibuprofen (By mouth), Cefdinir (By mouth) Follow Up With: Ana Laura Sharp CNP [Primary Care Provider] - (Office will call you with an appointment date and time)
[2018-07-27 11:08] LABS: BUN/Creatinine Ratio 7 (6-26); Blood Urea Nitrogen 3 mg/dL (6-20); Calcium 8.5 mg/dL (8.6-10.3); Carbon Dioxide 21 mEq/L (23-29); Chloride 107 mEq/L (98-107); Glucose 81 mg/dL (70-105); Magnesium 1.6 mg/dL (1.6-2.6); Osmolality,Calculated 286 (280-300); Phosphorous 2.7 mg/dL (2.7-4.5); Potassium 3.8 mEq/L (3.5-5.1); Sodium 140 mEq/L (136-145); eGFR For Non-African Americans > 60 (> 60)
[2018-07-27 11:18] VITALS: BP 109/75
--- NOTE | 2018-07-27 15:08 | Electrocardiograph Report ---
[address] [place], [place] [address] Test Date: 2018-07-25 Pat Name: Marcela Varghese Department: 112 Room: 2A48 Gender: F [employer] Tender: : 1990 Requested By: Rolly Sebastian Order Number: [id number] Reading MD: Hazel Watson Measurements Intervals [place] Rate: 75 P: 26 NV: 121 QRS: 20 QRSD: 101 T: 48 QT: 357 QTc: 385 Interpretive Statements SINUS RHYTHM WITH SINUS ARRHYTHMIA NONSPECIFIC T WAVE ABNORMALITIES Electronically Signed On 07-27-2018 15:06:57 EST by Hazel Watson
== END 2018-07-27 11:21 | disposition home or self-care (01) ==
LOC: EMEROOARM 14:25 → 2ANU 14:25 → SUATTDRO 23:50 → 2ANU 07-24 00:30
PROVIDERS: ADMIT Internal Medicine; ATTEND Internal Medicine